=== PATIENT | male | born 1945 | race Caucasian/White ===

== ENCOUNTER 2019-02-18 16:58 | Inpatient (IN) | payer OTHER, MEDICARE ==
[~2019-02-18] VITALS: Ht 175.3 cm; Wt 79.5 kg
[2019-02-18 17:23] LABS: BASOPHILS ABSOLUTE AUTO 0.06 K/mm3 (0.00-0.23); BASOPHILS PERCENT AUTO 1 % (0-2); EOSINOPHILS ABSOLUTE AUTO 0.16 K/mm3 (0.00-0.68); EOSINOPHILS PERCENT AUTO 2 % (0-6); Hematocrit 46.6 % (37.0-53.0); Hemoglobin 15.3 g/dL (13.5-17.5); IMMATURE GRAN ABSOLUTE AUTO 0.02 K/mm3 (0.00-0.10); IMMATURE GRAN PERCENT AUTO 0 % (0-1); LYMPHOCYTES ABSOLUTE AUTO 1.42 K/mm3 (0.84-5.20); LYMPHOCYTES PERCENT AUTO 19 % (21-46); MONOCYTES ABSOLUTE AUTO 0.68 K/mm3 (0.16-1.47); MONOCYTES PERCENT AUTO 9 % (4-13); Mean Corpuscular HGB 31.3 pg (26.0-34.0); Mean Corpuscular HGB Conc 32.8 g/dL (31.5-36.5); Mean Corpuscular Volume 95 fL (80-100); Mean Platelet Volume 10.7 fL (9.1-12.4); NEUTROPHILS ABSOLUTE AUTO 5.06 K/mm3 (1.96-9.15); NEUTROPHILS PERCENT AUTO 68 % (41-73); Platelet Count 217 K/mm3 (150-400); RDW Coefficient Variation 14.2 % (11.7-14.2); RDW Standard Deviation 50.2 fL (35.1-46.3); Red Blood Cell Count 4.89 M/mm3 (4.30-5.90)
[2019-02-18 17:30] LABS: Calcium, Ionized (POC) 1.09 mmol/L (1.10-1.46); Chloride (POC) 110 mmol/L (98-108); Creatinine (POC) 1.4 mg/dL (0.8-1.3); Glucose (ISTAT POC) 103 mg/dL (70-99); Hemoglobin (POC) 14.6 g/dL (13.5-17.5); Potassium (POC) 3.8 mmol/L (3.5-5.5); Sodium (POC) 141 mmol/L (135-148); Total CO2 (POC) 22 mmol/L (21-32)
[2019-02-18] MEDS ORDERED: OMEPRAZOLE20 MG PO (17:44)
[2019-02-18] MEDS ORDERED: Prinivil10 MG PO (17:44)
[2019-02-18] MEDS ORDERED: Aspir 8181 MG PO (17:44)
[2019-02-18] MEDS ORDERED: Azor 10-20 MG1 EACH (17:44)
[2019-02-18] MEDS ORDERED: ETOD400 PO (17:44)
[2019-02-18] MEDS ORDERED: ZOLP5 PO (17:45)
[2019-02-18] MEDS ORDERED: SERT25 PO ×2 (17:45→19:23)
[2019-02-18 17:46] LABS: Alanine Aminotransfer (ALT/SGP 16 U/L (12-78); Albumin, Blood 3.5 g/dL (3.4-5.0); Albumin/Globulin Ratio 0.9 (0.8-1.8); Alk Phos 93 U/L (50-136); Anion Gap 8 mmol/L (6-16); Aspartate Aminotrans (AST/SGOT 21 U/L (12-37); Bilirubin, Total 0.6 mg/dL (0.1-1.0); Blood Urea Nitrogen 27 mg/dL (8-24); Bun/Creatinine Ratio 22.1 (12.0-20.0); CO2, Blood 21 mmol/L (21-32); Calcium, Blood 8.8 mg/dL (8.5-10.1); Chloride, Blood 110 mmol/L (98-108); Creatinine, Blood 1.22 mg/dL (0.60-1.20); Glomerular Filtration Rate >60 (60-); Glucose, Blood 107 mg/dL (70-99); Potassium, Blood 3.7 mmol/L (3.5-5.5); Sodium, Blood 139 mmol/L (136-145); Total Protein, Blood 7.5 g/dL (6.4-8.2); Troponin I 0.064 ng/mL (0.000-0.040)
[2019-02-18 17:51] LABS: International Normalized Ratio 0.97; Prothrombin Time Results 10.3 Sec (9.7-11.5)
[2019-02-18] MEDS ORDERED: Norvasc10 MG PO (19:20)
[2019-02-19 04:58] LABS: BASOPHILS ABSOLUTE AUTO 0.04 K/mm3 (0.00-0.23); BASOPHILS PERCENT AUTO 1 % (0-2); EOSINOPHILS ABSOLUTE AUTO 0.12 K/mm3 (0.00-0.68); EOSINOPHILS PERCENT AUTO 2 % (0-6); Hematocrit 41.5 % (37.0-53.0); Hemoglobin 13.8 g/dL (13.5-17.5); IMMATURE GRAN ABSOLUTE AUTO 0.01 K/mm3 (0.00-0.10); IMMATURE GRAN PERCENT AUTO 0 % (0-1); LYMPHOCYTES ABSOLUTE AUTO 1.05 K/mm3 (0.84-5.20); LYMPHOCYTES PERCENT AUTO 16 % (21-46); MONOCYTES ABSOLUTE AUTO 0.59 K/mm3 (0.16-1.47); MONOCYTES PERCENT AUTO 9 % (4-13); Mean Corpuscular HGB 31.4 pg (26.0-34.0); Mean Corpuscular HGB Conc 33.3 g/dL (31.5-36.5); Mean Corpuscular Volume 95 fL (80-100); Mean Platelet Volume 10.5 fL (9.1-12.4); NEUTROPHILS ABSOLUTE AUTO 4.92 K/mm3 (1.96-9.15); NEUTROPHILS PERCENT AUTO 73 % (41-73); Platelet Count 172 K/mm3 (150-400); RDW Coefficient Variation 14.1 % (11.7-14.2); RDW Standard Deviation 49.7 fL (35.1-46.3); Red Blood Cell Count 4.39 M/mm3 (4.30-5.90); White Blood Cell Count 6.73 K/mm3 (4.00-11.30)
[2019-02-19 05:30] LABS: Albumin, Blood 2.9 g/dL (3.4-5.0); Albumin/Globulin Ratio 0.8 (0.8-1.8); Bilirubin, Total 0.8 mg/dL (0.1-1.0); Bun/Creatinine Ratio 22.2 (12.0-20.0); Calcium, Blood 8.2 mg/dL (8.5-10.1); Creatinine, Blood 1.26 mg/dL (0.60-1.20); Globulin, Blood 3.5 g/dL (2.2-4.0); Potassium, Blood 3.7 mmol/L (3.5-5.5); Total Protein, Blood 6.4 g/dL (6.4-8.2)
[2019-02-19 06:16] LABS: Troponin I 0.654 ng/mL (0.000-0.040)
--- NOTE | 2019-02-19 07:33 | NUR ---
SHIFT SUMMARY: PT TO PCU ROOM 15 VIA GURMIGUEL FROM ED. PT ARRIVED A+O X4, LS CLEAR, DENIED PAIN. PT C/O SOME ANXIETY UPON ARRIVAL BUT REFUSED ATIVAN 0.5mg AND REQUESTED ONLY HIS "HALF" OF AMBIEN. PT RESTED THE REST OF NOC WITHOUT ANY COMPLAINTS UNTIL THIS AM WHEN PT C/O DRY ITCHY EYES STATING THAT THE AIR AND BEING DRIED OUT CAUSING HIS EYES TO BE DRY. PT UPDATED ON PLAN FOR TODAY AND STATED THANKYOU. REPORT GIVEN TO ONCOMING WALKER RN AND BRYAN RN TO ASSUME CARE AT 0700.
--- NOTE | 2019-02-19 08:00 | NUR ---
States he is doing fine, except for his usual chronic pain. States that he takes Etodolac, TID, for pain. IT is not ordered for him on inpatient medications.
[2019-02-19 09:43] LABS: Adenovirus Not Detected (NOT DETECT); Bordetella pertussis Not Detected (NOT DETECT); Chlamydophila pneumoniae Not Detected (NOT DETECT); Coronavirus 229E Not Detected (NOT DETECT); Coronavirus HKU1 Not Detected (NOT DETECT); Coronavirus NL63 Not Detected (NOT DETECT); Coronavirus OC43 Not Detected (NOT DETECT); Human Metapneumovirus Not Detected (NOT DETECT); Human Rhinovirus/Enterovirus Not Detected (NOT DETECT); Influenza A Not Detected (NOT DETECT); Influenza A/2009-H1 Not Detected (NOT DETECT); Influenza A/H1 Not Detected (NOT DETECT); Influenza A/H3 Not Detected (NOT DETECT); Influenza B Not Detected (NOT DETECT); Mycoplasma pneumoniae Not Detected (NOT DETECT); Parainfluenza Virus 1 Not Detected (NOT DETECT); Parainfluenza Virus 2 Not Detected (NOT DETECT); Parainfluenza Virus 3 Not Detected (NOT DETECT); Parainfluenza Virus 4 Not Detected (NOT DETECT); Respiratory Syncytial Virus Not Detected (NOT DETECT)
--- NOTE | 2019-02-19 11:09 | NUR ---
ECHOCARDIOGRAM COMPLETED
--- NOTE | 2019-02-19 18:44 | NUR ---
A+O, SALINE LOCKED, TALKED TO DR AND SPECIALIST TODAY, STILL WANTS TO CONSIDER OPTIONS BEFORE COMMITING TO ANY PROCEDURES, CALL LIGHT IN REACH, ROOM AIR, NEW MEDICATION STARTED TO TREAT ARTHRITIS, WILL CONTINUE TO MONITOR AND TREAT UNTIL SBAR REPORT GIVEN TO DAY SHIFT
--- NOTE | 2019-02-19 20:12 | NUR ---
LATE ENTRY: DR. LANIER CALLED X2 THIS AM WITH RETURN CALL AT APPRX [phone] TO GIVE CV TROPONIN [phone]. NO NEW ORDERS GIVEN AT THAT TIME. SERIAL TROP VALUES GIVEN IN REPORT TO ONCOMING XIN CARDOSO AND BRYAN LAUREN.
[2019-02-20 04:24] LABS: BASOPHILS ABSOLUTE AUTO 0.04 K/mm3 (0.00-0.23); BASOPHILS PERCENT AUTO 1 % (0-2); EOSINOPHILS PERCENT AUTO 2 % (0-6); Hematocrit 41.7 % (37.0-53.0); Hemoglobin 13.8 g/dL (13.5-17.5); IMMATURE GRAN ABSOLUTE AUTO 0.01 K/mm3 (0.00-0.10); IMMATURE GRAN PERCENT AUTO 0 % (0-1); LYMPHOCYTES ABSOLUTE AUTO 0.85 K/mm3 (0.84-5.20); LYMPHOCYTES PERCENT AUTO 18 % (21-46); MONOCYTES ABSOLUTE AUTO 0.47 K/mm3 (0.16-1.47); MONOCYTES PERCENT AUTO 10 % (4-13); Mean Corpuscular HGB 30.6 pg (26.0-34.0); Mean Corpuscular HGB Conc 33.1 g/dL (31.5-36.5); Mean Corpuscular Volume 93 fL (80-100); Mean Platelet Volume 10.7 fL (9.1-12.4); NEUTROPHILS ABSOLUTE AUTO 3.39 K/mm3 (1.96-9.15); NEUTROPHILS PERCENT AUTO 70 % (41-73); Platelet Count 172 K/mm3 (150-400); RDW Coefficient Variation 14.1 % (11.7-14.2); RDW Standard Deviation 47.8 fL (35.1-46.3); Red Blood Cell Count 4.51 M/mm3 (4.30-5.90); White Blood Cell Count 4.86 K/mm3 (4.00-11.30)
[2019-02-20 04:39] LABS: Anion Gap 9 mmol/L (6-16); Blood Urea Nitrogen 28 mg/dL (8-24); Bun/Creatinine Ratio 21.5 (12.0-20.0); CHOL/HDL RATIO 5.1; CO2, Blood 25 mmol/L (21-32); Calcium, Blood 8.2 mg/dL (8.5-10.1); Chloride, Blood 109 mmol/L (98-108); Cholesterol 252 mg/dL (50-200); Glomerular Filtration Rate 58 (60-); Glucose, Blood 91 mg/dL (70-99); HDL Cholesterol 49 mg/dL (>39); LDL/HDL RATIO 3.6; Low Density Lipoprotein Chol 176 mg/dL (0-110); Potassium, Blood 3.3 mmol/L (3.5-5.5); Sodium, Blood 143 mmol/L (136-145); Triglycerides 137 mg/dL (30-160); Very Low Density Lipoprot Chol 27 mg/dL (6-32)
--- NOTE | 2019-02-20 05:09 | NUR ---
SHIFT SUMMARY: PATIENT SLEPT INTERMITTENTLY DURING SHIFT, STAES HE IS ANXIOUS ABOUT AN ANGIO D/T PREVIOUS HX. PATIENT VSS, CALL LIGHT WITHIN REACH, BED LOW AND LOCKED
--- NOTE | 2019-02-20 07:30 | NUR ---
ASSUMED CARE: PT RESTING IN BED, AWAKE, TALKING TO STAFF, ALERT AND ORIENTED. DENIES NEEDS OR CONCERNS AT THIS TIME.
[2019-02-20] MEDS ORDERED: ENTRESTO 24 MG1 EACH PO (12:00)
[2019-02-20] MEDS ORDERED: METO25ER PO (12:01)
[2019-02-20] MEDS ORDERED: FURO40 PO (12:01)
--- NOTE | 2019-02-20 12:24 | NUR ---
PT TITRATED TO RA PRIOR TO DC. IV DC'D WNL. MEDICATIONS AND ORDERS FAXED TO [facility]. INSTRUCTIONS GIVEN TO PT ABOUT MEDICATION CHANGES BY MDS AND THIS RN. PT DENIED FURTHER NEEDS OR CONCERNS. ESCORTED OUT VIA WHEEL CHAIR BY HOSPITAL STAFF. DENIED FURTHER NEEDS OR CONCERNS
== END 2019-02-20 12:21 | disposition home or self-care (01) | DRG 280 ==
LOC: ER 16:58 → PCU 20:32 → ERHOLD 20:32 → PCU 23:52
PROVIDERS: Emergency Medicine; Hospitalist; Nurse Practitioner Acute Care; ADMIT Internal Medicine
DX: I13.0 Hypertensive heart and chronic kidney disease with heart failure and stage 1 through stage 4 chronic kidney disease, or unspecified chronic kidney disease (principal); J96.01 Acute respiratory failure with hypoxia; I21.4 Non-ST elevation (NSTEMI) myocardial infarction; I50.43 Acute on chronic combined systolic (congestive) and diastolic (congestive) heart failure; I47.1 Supraventricular tachycardia; E44.0 Moderate protein-calorie malnutrition; I25.2 Old myocardial infarction; I25.10 Atherosclerotic heart disease of native coronary artery without angina pectoris; Z87.891 Personal history of nicotine dependence; Z98.62 Peripheral vascular angioplasty status; I71.4 Abdominal aortic aneurysm, without rupture; Z79.82 Long term (current) use of aspirin; J43.9 Emphysema, unspecified; R59.0 Localized enlarged lymph nodes; I25.5 Ischemic cardiomyopathy; Z66 Do not resuscitate; E78.5 Hyperlipidemia, unspecified; I73.9 Peripheral vascular disease, unspecified; I27.20 Pulmonary hypertension, unspecified; N18.2 Chronic kidney disease, stage 2 (mild); G47.00 Insomnia, unspecified
CPT/HCPCS: 0099U; 36415; 71045; 71260; 80047; 80048; 80053; 80061; 83880; 84145; 84443; 84484; 85014; 85025; 85610; 85730; 93005; 93010; 93306; 96372-59; 96374-59; 99285-25; J1650; J1940; Q9967